=== PATIENT | female | born 1975 | race Caucasian/White ===

== ENCOUNTER 2018-04-20 10:09 | Emergency (ER) | payer OTHER ==
[~2018-04-20] VITALS: Ht 162.6 cm; Wt 54.4 kg
[~2018-04-20 10:09] MED LIST: BACTROBAN OINT22 GM TP; CEFADROXIL500 MG PO
== END 2018-04-20 15:40 | disposition home or self-care (01) ==
LOC: ER 10:09
DX: S83.411A Sprain of medial collateral ligament of right knee, initial encounter (principal); X50.3XXA Overexertion from repetitive movements, initial encounter; Y93.41 Activity, dancing; Y92.89 Other specified places as the place of occurrence of the external cause; Y99.8 Other external cause status

== ENCOUNTER 2022-01-18 22:44 | Emergency (ER) | payer OTHER ==
[~2022-01-18] VITALS: Ht 162.6 cm; Wt 54.4 kg
[2022-01-19] MEDS ORDERED: KETO10TA2 PO (00:40)
[2022-01-19] MEDS ORDERED: NORFLEX100MG PO (00:40)
== END 2022-01-19 | disposition home or self-care (01) ==
LOC: ER 22:44
DX: M62.830 Muscle spasm of back (principal)